=== PATIENT | male | born 1995 | race Caucasian/White ===

== ENCOUNTER 2021-02-28 18:45 | Emergency (ER) | payer OTHER, SELFPAY ==
[2021-02-28 18:58] VITALS: BP 149/66; PULSE 84; RESP 14; TEMP 37.2; O2SAT 100
--- NOTE | 2021-02-28 19:22 | ED.EYEPROB ---
HPI - Eye Problem General Chief complaint: Eye Problems Stated complaint: Very red eyes/some drainage/itching Time Seen by Provider: 02/28/21 19:03 Source: patient and RN notes reviewed Mode of arrival: ambulatory Limitations: no limitations History of Present Illness HPI Narrative: Patient presents today complaining of a 1 week history of bilateral eye watering, redness, and itching. Denies pain purulent discharge. He does report some crusting to the left lateral canthus a few days ago, but none since then. Denies any eyelash matting. States his nose has been running in the mornings for a couple of days. Symptoms are not worsening, but not improving. He does work with chemicals in a sterile room, but states he wears full PPE and has not come into contact with any chemicals as far as he knows. Denies vision changes. He has been using some red eye drops and ibuprofen without relief. MD chief complaint: eye redness Related Data Home Medications Medication Instructions Recorded Confirmed No Home Medications 02/28/21 02/28/21 Allergies Allergy/AdvReac Type Severity Reaction Status Date / Time No Known Allergies Allergy Verified 02/28/21 19:05 Review of Systems Review of Systems: Narrative: CONSTITUTIONAL: Denies body aches, fever, chills, or sweats. EYES: Denies visual changes, or discharge. + bilateral eye itching, watering, and redness ENT: Denies congestion, sore throat, or otalgia. + Morning rhinorrhea CARDIOVASCULAR: Denies chest pain, palpitations, or edema. RESPIRATORY: Denies cough or dyspnea. GASTROINTESTINAL: Denies abdominal pain, nausea, vomiting, or diarrhea. GENITOURINARY: Denies dysuria or hematuria. SKIN: Denies rash, itching, or wounds. MUSCULOSKELETAL: Denies back pain, joint pain, or myalgia. NEUROLOGIC: Denies headache, numbness, tingling, or weakness. PSYCH: Denies depression or anxiety. [facility] Surgical History Surgical History (Updated 02/28/21 @ 19:27 by Mariaelena Avalos, ASSISTANT LIBRARIAN, ) History of appendectomy Comments At time of signature, I have reviewed and agree with nursing past medical, surgical, social and family history unless otherwise noted. Please see nursing chart for further information. There is no relevant family history pertinent to the presenting complaint Exam Narrative: Exam Narrative: GENERAL: Well-appearing, well-nourished, and in no acute distress. HEAD: Normocephalic, atraumatic. EYES: EOMI. PERRL. Mild bilateral conjunctival injection with mild chemosis. No drainage or crusting. No matting of the eyelashes. Lids and lashes normal. ENT: Mucous membranes pink and moist. NECK: Normal AROM. . CHEST: No respiratory distress. EXTREMITIES: Normal range of motion. No edema. SKIN: Warm, dry, no rash. Capillary refill normal. Normal skin turgor. NEURO: No focal deficits. Alert and oriented x3. Gait steady. PSYCH: Normal affect. No signs of depression or anxiety. Course Vital Signs Vital signs: Vital Signs Temperature 98.9 F 02/28/21 18:58 Pulse Rate 84 02/28/21 18:58 Respiratory Rate 14 02/28/21 18:58 Blood Pressure 149/66 H 02/28/21 18:58 Pulse Oximetry 100 02/28/21 18:58 Temperature 98.9 F 02/28/21 18:58 Pulse Rate 84 02/28/21 18:58 Respiratory Rate 14 02/28/21 18:58 Blood Pressure 149/66 H 02/28/21 18:58 Pulse Oximetry 100 02/28/21 18:58 Reviewed. Pt has been instructed to follow up with his PCP regarding his elevated blood pressure today. MDM - Eye Problem Differential Diagnosis Differential diagnosis: Likely corneal abrasion, conjunctivitis, corneal ulcer and other (Seasonal allergies, chemical irritation) Critical Care Time Critical Care Time Critical Care Time: No Discharge Plan Discharge Clinical Impression: Allergic conjunctivitis of both eyes Patient Disposition: Home, Self-Care Condition: Stable Instructions: Conjunctivitis (ED) Additional Instructions: Your symptoms are likely due t
== END 2021-02-28 19:27 | disposition home or self-care (01) ==
PROVIDERS: Emergency Provider Nurse Practitioner
DX: H10.13 Acute atopic conjunctivitis, bilateral (principal)
CPT/HCPCS: 99212; G0463